=== PATIENT | female | born 1985 | race Hispanic/Latino ===

== ENCOUNTER 2018-11-23 20:08 | Observation (INO) | payer OTHER ==
[2018-11-23 21:36] LABS: #Basophils 0.1 thou/uL (0.0-0.2); #Eosinphils 0.1 thou/uL (0.0-0.7); #Monocytes 0.4 thou/uL (0.11-0.59); #Neutrophils 7.6 thou/uL (1.40-6.50); %Basophils 0.5 % (0.0-1.0); %Eosinophils 0.7 % (0.0-10.0); %Lymphocytes 27.3 % (21.0-51.0); %Monocytes 3.4 % (0.0-10.0); %Neutrophils 68.1 % (42.0-75.0); Hemoglobin 14.2 g/dL (12.0-16.0); Mean Corpuscular Hemoglobin 28.5 pg (27.0-31.0); Mean Corpuscular Volume 86.4 fL (78.0-98.0); Mean Platelet Volume 7.6 fL (7.4-10.4); Platelet Count 322 thou/uL (130-400); RBC Distribution Width 11.8 % (11.5-14.5); Red Blood Cell (RBC) Count 4.99 mill/uL (4.20-5.40); White Blood Cell (WBC) Count 11.1 thou/uL (4.8-10.8)
--- NOTE | 2018-11-23 21:58 | RAD ---
FRONTAL VIEW CHEST: 11/23/18 INDICATION: Left arm pain. FINDINGS: There is no evidence of consolidation, effusion, or pneumothorax. No free air. The cardiac silhouette is normal sized. IMPRESSION: No focal consolidation. POS: [facility]
[2018-11-23 22:11] LABS: ALT (SGPT) 30 U/L (8-55); AST (SGOT) 19 U/L (5-34); Albumin 4.4 g/dL (3.5-5.0); Alkaline Phosphatase 110 U/L (40-150); Anion Gap 12 mmol/L (10-20); BUN (Urea Nitrogen) 13 mg/dL (7.0-18.7); Bilirubin, Total 0.4 mg/dL (0.2-1.2); CK (CPK) 77 U/L (29-168); Calc. Creatinine Clearance 0 mL/min (70-130); Calcium 9.8 mg/dL (7.8-10.44); Carbon Dioxide 28 mmol/L (22-29); Chloride 103 mmol/L (98-107); Estimated GFR-MDRD 84; Globulin 4.2 g/dL (2.4-3.5); Glucose 88 mg/dL (70-105); Lipase 12 U/L (8-78); Potassium 3.9 mmol/L (3.5-5.1); Protein, Total 8.6 g/dL (6.0-8.3); Sodium 139 mmol/L (136-145)
--- NOTE | 2018-11-23 23:44 | CT ---
CT OF HEAD NONCONTRAST: 11/23/18 INDICATION: Headache with left upper extremity numbness. FINDINGS: Ventricular system is normal in size. There is no midline shift. There is hypoattenuation at the expe cted region of the pineal gland, incompletely assessed on the basis of this exam. No intracranial he morrhage, mass effect or midline shift. IMPRESSION: 1. No acute intracranial abnormalities are identified. 2. 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 Recommend followup with dedicated pre and postcontrast brain MRI for further evaluation. Code T POS: [facility]
[2018-11-23] MEDS ORDERED: diphenhydrAMINE 50 MG/ML VIAL ONE (23:46)
[2018-11-23] MEDS ORDERED: Acetaminophen 500 MG TAB ONE (23:46)
[2018-11-23] MEDS ORDERED: Metoclopramide HCl 10 MG/2 ML VIAL ONE (23:46)
[2018-11-24] MEDS ORDERED: diphenhydrAMINE 50 MG/ML VIAL ONE (00:08)
[2018-11-24] MEDS ORDERED: Acetaminophen 325 MG TAB PO PRN (02:25)
[2018-11-24] MEDS ORDERED: Ondansetron PF 4 MG/2 ML Vial IVP PRN (02:25)
[2018-11-24] MEDS ORDERED: hydrALAZINE 20 MG/ML VIAL SLOW IVP PRN (02:42)
[2018-11-24 04:40] LABS: #Eosinphils 0.1 thou/uL (0.0-0.7); #Lymphocytes 2.5 thou/uL (1.20-3.40); #Monocytes 0.4 thou/uL (0.11-0.59); #Neutrophils 5.3 thou/uL (1.40-6.50); %Basophils 0.1 % (0.0-1.0); %Eosinophils 1.4 % (0.0-10.0); %Lymphocytes 29.9 % (21.0-51.0); %Monocytes 4.2 % (0.0-10.0); %Neutrophils 64.3 % (42.0-75.0); Hemoglobin 13.1 g/dL (12.0-16.0); Mean Corpuscular HGB CONC 33.2 g/dL (32.0-36.0); Mean Corpuscular Hemoglobin 28.9 pg (27.0-31.0); Mean Corpuscular Volume 87.1 fL (78.0-98.0); Mean Platelet Volume 7.6 fL (7.4-10.4); Platelet Count 285 thou/uL (130-400); RBC Distribution Width 11.8 % (11.5-14.5); Red Blood Cell (RBC) Count 4.53 mill/uL (4.20-5.40); White Blood Cell (WBC) Count 8.2 thou/uL (4.8-10.8)
--- NOTE | 2018-11-24 04:40 | HP ---
PRIMARY CARE DOCTOR: No PCP. CODE STATUS: Full code. TIME OF EVALUATION: 2 a.m. CHIEF COMPLAINT: Left 2 to 4 fingers numbness and inability to move them. HISTORY OF PRESENT ILLNESS: This is a 33-year-old female patient with past medical history of morbidly obese, hypertension, who came to the hospital after having a new episode that was started around 4 p.m., where the patient had sudden onset of left 2 to 4 fingers numbness, symptoms were moderate, the patient still have the symptoms. No clear triggers. No alleviating factors. Associated with paresthesia in the area. The symptoms are relatively getting worse. REVIEW OF SYSTEMS: CONSTITUTIONAL: No fever, chills, or generalized weakness. RESPIRATORY: No cough, sputum production, or shortness of breath. CARDIOVASCULAR: No chest pain or palpitations. GASTROINTESTINAL: No nausea. No vomiting, diarrhea, or abdominal pain. [employer]ATE COMMUNICATIONS: No dizziness, headache, or feeling lightheaded. The patient does have left 2 to 4 fingers numbness and palsy. GENITOURINARY: No burning on urination. EXTREMITIES: No leg swelling. All other systems were reviewed and negative except for the findings mentioned above. PAST MEDICAL HISTORY: As mentioned in the HPI. PAST SURGICAL HISTORY: Cholecystectomy. PSYCH HISTORY: No previous psych history. SOCIAL HISTORY: The patient is a former marijuana user. No smoking history. The patient drinks rarely. She lives with mother and boyfriend in [place]. FAMILY HISTORY: Reviewed and noncontributory for current presentation. ALLERGIES: TO ADRYAN. NO KNOWN DRUG ALLERGIES. REPORTED MEDICATIONS: None. PHYSICAL EXAMINATION: VITAL SIGNS: The patient had blood pressure 170/133 with heart rate 91, respiratory rate was 20, temperature 98.4, oxygen saturation 97% on room air. GENERAL APPEARANCE: The patient is alert and oriented, not in acute distress. HEENT: Eyes; normal conjunctivae. Moist oral mucosa. Anicteric. No JVD. RESPIRATORY: Bilateral air entry. No rales. No wheezing. Symmetric expansion. CARDIOVASCULAR: Normal rate, regular rhythm. No murmurs, no gallops. Bilateral leg edema. ABDOMEN: Soft. Normal bowel sounds. MUSCULOSKELETAL: Baseline range of motion and strength. No tenderness. SKIN: Warm, intact. No pallor. No rash. No redness. VASCULAR: Peripheral pulses are present. Capillary refill seems to be intact. NEURO: The patient has left-sided fingers paresis and paresthesias from #2 to 4. The rest of the physical exam is negative. From the neuro standpoint, cranial nerves seems to be intact. PSYCH: The patient has good mood. No anxiety. Optimal judgment. DIAGNOSTIC STUDIES: EKG was reviewed. The patient has normal sinus rhythm with a rate of 88, with AR 136, duration 74, QT corrected 438. Chest x-ray results, there is no focal consolidation. Brain CT showed no acute cranial abnormalities are identified. 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 Also, this is incompletely evaluated. We recommended for all they can do pre and post contrast brain MRI for further evaluation. LABORATORY DATA: Labs were reviewed. The patient has white count of 11.1, hemoglobin 14.2, MCV 86.4, platelet count 322. D-dimer is negative. Sodium 139, potassium 3.9, chloride 103, carbon dioxide 20, anion gap 12, BUN 13, creatinine 0.8, GFR 84, glucose 88, calcium 9.8, total bilirubin 0.4, AST 19, ALT 30, alkaline phosphatase 110. Serum total protein 9.6, albumin 4.4, globulin 4.2, albumin to globulin ratio is 1.0, lipase 12. ASSESSMENT AND PLAN: The patient will be placed in the hospital with following medical problems: 1. 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 2. Morbid obesity. The patient has been advised to lose weight. 3. Hypertensive urgency. The patient has some high blood pressure. She has a history of chronic hypertension with noncompliance with medical treatment. The patient is being started on p.r.n. medications due to new onset of neurological findings may allow some permissive hypertension. 4. Deep venous thrombosis prophylaxis. 5. Risk: High risk due to new onset of neurological deficit. Job ID: [id number]
[2018-11-24 05:05] LABS: Anion Gap 12 mmol/L (10-20); BUN (Urea Nitrogen) 13 mg/dL (7.0-18.7); Calc. Creatinine Clearance 0 mL/min (70-130); Calcium 8.8 mg/dL (7.8-10.44); Carbon Dioxide 26 mmol/L (22-29); Cardiac Risk 5.1 (Less than 4.5); Chloride 105 mmol/L (98-107); Cholesterol 139 mg/dl (< 200 Desired); Estimated GFR-MDRD 85; Glucose 151 mg/dL (70-105); HDL Cholesterol 27 mg/dL (>60 Neg Risk); LDL Cholesterol, Calculated 66 mg/dL; Potassium 3.2 mmol/L (3.5-5.1); Sodium 140 mmol/L (136-145); Triglycerides 228 mg/dL (Less than 150)
[2018-11-24] MEDS: Sodium Chloride 0.9% 1,000 ML IV SCH ×2 (05:09→15:55)
[2018-11-24 05:44] VITALS: BMI 69.4
[2018-11-24] MEDS ORDERED: Enoxaparin Sodium 40 MG/0.4 ML SYRINGE SC SCH (09:00)
[2018-11-24] MEDS ORDERED: Aspirin 325 mg Enteric Coated Tablet PO SCH (09:00)
[2018-11-24] MEDS ORDERED: Ketorolac Tromethamine 30 MG/ML VIAL IVP PRN (11:30)
[2018-11-24] MEDS ORDERED: Ketorolac Tromethamine 30 MG/ML VIAL IVP SCH (12:00)
[2018-11-24] MEDS ORDERED: Dihydroergotamine Mesylate 1 MG/ML AMP SLOW IVP SCH (14:00)
[2018-11-24] MEDS ORDERED: Metoclopramide HCl 10 MG/2 ML VIAL IVP SCH (14:00)
[2018-11-24 16:11] VITALS: TEMP 97.5
[2018-11-24 16:20] VITALS: BP 139/86
[2018-11-24] MEDS ORDERED: Atorvastatin Calcium 40 MG TAB PO SCH (21:00)
== END 2018-11-24 18:40 | disposition home or self-care (01) ==
LOC: ERS 20:08 → 2SW 11-24 02:22 → ERHOLD 11-24 02:58 → 2SE 11-24 04:44
PROVIDERS: ADMIT Hospitalist; ATTEND Hospitalist
DX: R29.818 Other symptoms and signs involving the nervous system (principal); I16.0 Hypertensive urgency; E66.01 Morbid (severe) obesity due to excess calories; Z68.44 Body mass index [BMI] 60.0-69.9, adult; Z90.49 Acquired absence of other specified parts of digestive tract; Z91.018 Allergy to other foods; Z79.899 Other long term (current) drug therapy
CPT/HCPCS: 36415; 70450; 71045; 80048; 80053; 80061; 82550; 83690; 84484; 85025; 85379; 90471; 90686; 93005; 96361; 96365; 96366; 96372; 96375; 96376; G0008; G0378; J1110; J1200; J1650; J1885; J2765

== ENCOUNTER 2018-11-27 16:29 | Emergency (ER) | payer OTHER ==
[2018-11-27] MEDS ORDERED: ISOVUE-370 76%-LOCM 1 ML ONE (16:36)
[2018-11-27 17:23] LABS: #Eosinphils 0.1 thou/uL (0.0-0.7); #Lymphocytes 1.9 thou/uL (1.20-3.40); #Monocytes 0.4 thou/uL (0.11-0.59); #Neutrophils 7.1 thou/uL (1.40-6.50); %Basophils 0.1 % (0.0-1.0); %Eosinophils 1.2 % (0.0-10.0); %Lymphocytes 19.6 % (21.0-51.0); %Neutrophils 75.1 % (42.0-75.0); Hemoglobin 13.6 g/dL (12.0-16.0); Mean Corpuscular HGB CONC 32.8 g/dL (32.0-36.0); Mean Corpuscular Hemoglobin 28.4 pg (27.0-31.0); Mean Corpuscular Volume 86.5 fL (78.0-98.0); Mean Platelet Volume 7.6 fL (7.4-10.4); Platelet Count 311 thou/uL (130-400); RBC Distribution Width 11.7 % (11.5-14.5); White Blood Cell (WBC) Count 9.5 thou/uL (4.8-10.8)
[2018-11-27 17:44] LABS: BHCG - Serum Negative (NEGATIVE); Pregs Control Background? CLEAR/WHITE (CLR/WHITE); Pregs Control Bar Appear? YES (CONTROL BAR)
[2018-11-27 17:46] LABS: ALT (SGPT) 30 U/L (8-55); AST (SGOT) 19 U/L (5-34); Albumin 4.2 g/dL (3.5-5.0); Alkaline Phosphatase 109 U/L (40-150); Anion Gap 10 mmol/L (10-20); BUN (Urea Nitrogen) 8 mg/dL (7.0-18.7); Bilirubin, Total 0.4 mg/dL (0.2-1.2); Calc. Creatinine Clearance 0 mL/min (70-130); Calcium 9.4 mg/dL (7.8-10.44); Carbon Dioxide 25 mmol/L (22-29); Chloride 105 mmol/L (98-107); Estimated GFR-MDRD 89; Globulin 3.9 g/dL (2.4-3.5); Glucose 88 mg/dL (70-105); Potassium 3.9 mmol/L (3.5-5.1); Protein, Total 8.1 g/dL (6.0-8.3); Sodium 136 mmol/L (136-145)
[2018-11-27] MEDS ORDERED: Acetaminophen 500 MG TAB ONE (17:47)
[2018-11-27] MEDS ORDERED: Metoclopramide HCl 10 MG/2 ML VIAL ONE (17:47)
[2018-11-27] MEDS ORDERED: diphenhydrAMINE 50 MG/ML VIAL ONE (17:47)
--- NOTE | 2018-11-27 17:56 | RAD ---
CHEST ONE VIEW: 11/27/18 HISTORY: Chest pain, syncopal episode. Migraine headaches. Neck pain. COMPARISON: 11/23/18. FINDINGS: Large body habitus lowers the sensitivity of the study. Minimal motion artifact. Heart size is within normal limits. The lungs are clear. No pneumonia, edema, pleural effusion or other acute process. IMPRESSION: No acute intrathoracic disease. POS: [facility]
--- NOTE | 2018-11-27 18:36 | CT ---
CT ANGIOGRAM HEAD WITH 3D RENDERIN11/27/18 With and without contrast CT angiogram head is performed. COMPARISON: 11/23/[address] without IV contrast. There is no focal mass or midline shift. No intra or extra-axial hemorrhage. Both right and left vert ebral arteries are at the lower range of normal in caliber with an unremarkable appearing basilar art jason which is also at the lower range of normal size. The right and left intracranial internal caroti d arteries, visualized middle cerebral arteries and anterior cerebral arteries and posterior cerebral arteries appear unremarkable. No evidence for major branch occlusion. No evidence for aneurysm demon strated. IMPRESSION: Unremarkable head CTA. No evidence for major branch occlusion or evidence for aneurysm. Somewhat lowe r range of normal size vertebrobasilar arteries without focal abnormality. POS: [facility]
[2018-11-27] MEDS ORDERED: Magnesium 2 GM/50 ML BAG (IN WATER) ONE (19:39)
[2018-11-27] MEDS ORDERED: Ketorolac Tromethamine 30 MG/ML VIAL ONE (19:39)
== END 2018-11-27 21:20 | disposition short-term general hospital (02) ==
LOC: ERS 16:29
DX: R51 Headache (principal); E34.8 Other specified endocrine disorders; I10 Essential (primary) hypertension; E66.9 Obesity, unspecified
CPT/HCPCS: 36415; 70496; 71045; 80053; 84484; 84703; 85025; 93005; 96365; 96367; 96375; J1200; J1885; J2765; J3475; Q9966

== ENCOUNTER 2019-03-26 20:33 | Emergency (ER) | payer OTHER, SELFPAY ==
[2019-03-26 21:21] LABS: #Eosinphils 0.1 thou/uL (0.0-0.7); #Lymphocytes 2.1 thou/uL (1.20-3.40); #Monocytes 0.4 thou/uL (0.11-0.59); #Neutrophils 8.5 thou/uL (1.40-6.50); %Basophils 0.2 % (0.0-1.0); %Eosinophils 0.6 % (0.0-10.0); %Lymphocytes 19.3 % (21.0-51.0); %Monocytes 3.7 % (0.0-10.0); %Neutrophils 76.2 % (42.0-75.0); Mean Corpuscular HGB CONC 32.8 g/dL (32.0-36.0); Mean Corpuscular Hemoglobin 28.9 pg (27.0-31.0); Mean Corpuscular Volume 88.2 fL (78.0-98.0); Mean Platelet Volume 7.3 fL (7.4-10.4); Platelet Count 331 thou/uL (130-400); RBC Distribution Width 11.8 % (11.5-14.5); Red Blood Cell (RBC) Count 4.49 mill/uL (4.20-5.40); White Blood Cell (WBC) Count 11.1 thou/uL (4.8-10.8)
[2019-03-26 21:31] LABS: BHCG - Serum Negative (NEGATIVE); Pregs Control Background? CLEAR/WHITE (CLR/WHITE); Pregs Control Bar Appear? YES (CONTROL BAR)
[2019-03-26 21:42] LABS: ALT (SGPT) 42 U/L (8-55); AST (SGOT) 23 U/L (5-34); Albumin 4.2 g/dL (3.5-5.0); Alkaline Phosphatase 112 U/L (40-150); Anion Gap 11 mmol/L (10-20); BUN (Urea Nitrogen) 13 mg/dL (7.0-18.7); Bilirubin, Total 0.3 mg/dL (0.2-1.2); Calc. Creatinine Clearance 0 mL/min (70-130); Calcium 9.5 mg/dL (7.8-10.44); Carbon Dioxide 29 mmol/L (22-29); Chloride 104 mmol/L (98-107); Estimated GFR-MDRD 81; Globulin 3.6 g/dL (2.4-3.5); Glucose 93 mg/dL (70-105); Potassium 4.4 mmol/L (3.5-5.1); Protein, Total 7.8 g/dL (6.0-8.3); Sodium 140 mmol/L (136-145)
[2019-03-26] MEDS ORDERED: Ondansetron ODT 8 MG TAB ONE (22:17)
[2019-03-26] MEDS ORDERED: Ketorolac Tromethamine 60 MG/2 ML VIAL ONE (22:17)
== END 2019-03-26 22:10 | disposition home or self-care (01) ==
LOC: ERS 20:33
DX: R10.9 Unspecified abdominal pain (principal); F32.9 Major depressive disorder, single episode, unspecified
CPT/HCPCS: 36415; 80053; 84703; 85025; 96372; J1885

== ENCOUNTER 2019-05-08 18:36 | Emergency (ER) | payer SELFPAY ==
[2019-05-08 19:51] LABS: #Eosinphils 0.2 thou/uL (0.0-0.7); #Lymphocytes 2.5 thou/uL (1.20-3.40); #Monocytes 0.4 thou/uL (0.11-0.59); #Neutrophils 7.6 thou/uL (1.40-6.50); %Basophils 0.3 % (0.0-1.0); %Eosinophils 1.4 % (0.0-10.0); %Lymphocytes 23.5 % (21.0-51.0); %Neutrophils 70.7 % (42.0-75.0); Hemoglobin 13.8 g/dL (12.0-16.0); Mean Corpuscular HGB CONC 33.1 g/dL (32.0-36.0); Mean Corpuscular Hemoglobin 28.6 pg (27.0-31.0); Mean Corpuscular Volume 86.5 fL (78.0-98.0); Mean Platelet Volume 7.8 fL (7.4-10.4); Platelet Count 287 thou/uL (130-400); RBC Distribution Width 11.7 % (11.5-14.5); Red Blood Cell (RBC) Count 4.83 mill/uL (4.20-5.40); White Blood Cell (WBC) Count 10.7 thou/uL (4.8-10.8)
[2019-05-08 20:12] LABS: ALT (SGPT) 32 U/L (8-55); AST (SGOT) 17 U/L (5-34); Alkaline Phosphatase 100 U/L (40-150); Anion Gap 11 mmol/L (10-20); BUN (Urea Nitrogen) 10 mg/dL (7.0-18.7); Bilirubin, Total 0.2 mg/dL (0.2-1.2); Calc. Creatinine Clearance 0 mL/min (70-130); Calcium 9.6 mg/dL (7.8-10.44); Carbon Dioxide 29 mmol/L (22-29); Chloride 101 mmol/L (98-107); Estimated GFR-MDRD Greater than 90; Globulin 3.7 g/dL (2.4-3.5); Glucose 88 mg/dL (70-105); Protein, Total 7.7 g/dL (6.0-8.3); Sodium 137 mmol/L (136-145)
== END 2019-05-08 21:12 | disposition home or self-care (01) ==
LOC: ERS 18:36
DX: M79.89 Other specified soft tissue disorders (principal); I10 Essential (primary) hypertension; G43.909 Migraine, unspecified, not intractable, without status migrainosus; E66.9 Obesity, unspecified; F32.9 Major depressive disorder, single episode, unspecified
CPT/HCPCS: 36415; 80053; 83880; 85025; 99283

== ENCOUNTER 2020-11-29 07:37 | Emergency (ER) | payer BC, SELFPAY ==
[2020-11-29 08:53] LABS: #Eosinphils 0.1 thou/uL (0.0-0.7); #Lymphocytes 1.5 thou/uL (1.20-3.40); #Monocytes 0.2 thou/uL (0.11-0.59); #Neutrophils 5.2 thou/uL (1.40-6.50); %Basophils 0.2 % (0.0-1.0); %Eosinophils 1.3 % (0.0-10.0); %Lymphocytes 21.8 % (21.0-51.0); %Monocytes 2.9 % (0.0-10.0); %Neutrophils 73.8 % (42.0-75.0); Hemoglobin 13.2 g/dL (12.0-16.0); Mean Corpuscular HGB CONC 33.9 g/dL (32.0-36.0); Mean Corpuscular Hemoglobin 29.6 pg (27.0-31.0); Mean Corpuscular Volume 87.3 fL (78.0-98.0); Mean Platelet Volume 8.5 fL (7.4-10.4); Platelet Count 253 thou/uL (130-400); RBC Distribution Width 11.4 % (11.5-14.5); Red Blood Cell (RBC) Count 4.46 mill/uL (4.20-5.40); White Blood Cell (WBC) Count 7.1 thou/uL (4.8-10.8)
--- NOTE | 2020-11-29 09:03 | ULT ---
Pelvic ultrasound: 11/29/2020 COMPARISON: None HISTORY: Heavy vaginal bleeding TECHNIQUE: Multiplanar grayscale sonographic imaging of the pelvis is obtained with transabdominal an d endovaginal imaging. The ovaries are evaluated with Doppler interrogation including color flow and spectral analysis. FINDINGS: The uterus measures approximately 11.2 x 4.6 x 5.1 cm. The ovaries are difficult to evaluat e as they can only be seen on the transabdominal imaging. The right ovary is very difficult to visualize. What may represent the right ovary measures approximately 2.4 x 3.4 x 2.9 cm and demonstra rodney blood flow. Blood flow is seen in the region of the left ovary. Left ovary measures approximately 5.8 x 4.4 x 6.3 cm and contains a cyst measuring in the 5.0 x 4.9 x 4.1 cm range. No uterine mass is identified. Endometrial stripe is approximately 1 cm, within normal limits for a premenopausal female. No discret e uterine mass identified. No free fluid is seen within the pelvis. IMPRESSION: 5 cm left ovarian cyst. No discrete uterine abnormality.
[2020-11-29 09:21] LABS: ALT (SGPT) 33 U/L (8-55); AST (SGOT) 28 U/L (5-34); Albumin 4.1 g/dL (3.5-5.0); Alkaline Phosphatase 120 U/L (40-110); Anion Gap 16 mmol/L (10-20); BUN (Urea Nitrogen) 9 mg/dL (7.0-18.7); Bilirubin, Total 0.3 mg/dL (0.2-1.2); Calc. Creatinine Clearance 0 mL/min (70-130); Calcium 8.6 mg/dL (7.8-10.44); Carbon Dioxide 24 mmol/L (22-29); Chloride 99 mmol/L (98-107); Globulin 3.7 g/dL (2.4-3.5); Glucose 363 mg/dL (70-105); Potassium 3.6 mmol/L (3.5-5.1); Protein, Total 7.8 g/dL (6.0-8.3); Sodium 135 mmol/L (136-145)
[2020-11-29] MEDS ORDERED: Ketorolac Tromethamine 30 MG/ML VIAL ONE (09:42)
[2020-11-29 10:01] LABS: Bacteria/HPF None Seen HPF (None Seen); Bilirubin Negative (Negative); Blood, Urine 3+ (Negative); Clarity Turbid (Clear); Glucose, Urine (Dipstick) Greater than 1000 mg/dL (Negative); Ketone, Urine 150 mg/dL (Negative); Leukocyte 25 Leu/uL (Negative); Nitrite Negative (Negative); Protein, Urine (Dipstick) 30 mg/dL (Neg-Trace); RBC/HPF Greater than 50 HPF (0-3); Specific Gravity, Urine 1.042 (1.002-1.036); Squamous Epithelial 0-3 HPF (0-3); Urobilinogen Normal mg/dL (Less than 2); WBC/HPF 0-3 HPF (0-3); pH, Urine 5.5 (5.0-9.0)
[2020-11-29 10:03] LABS: Pregnancy Test - Urine (BHCG) Negative (Negative); Specific Gravity 1.042 (1.002-1.036)
[2020-11-29 10:04] LABS: Pregu Control Background? CLEAR/WHITE (CLR/WHITE); Pregu Control Bar Appear? YES (CONTROL BAR)
== END 2020-11-29 10:31 | disposition home or self-care (01) ==
LOC: ERS 07:37
DX: N94.6 Dysmenorrhea, unspecified (principal); I10 Essential (primary) hypertension; E66.9 Obesity, unspecified
CPT/HCPCS: 36415; 76856; 80053; 81003; 81015; 81025; 85025; 86850; 86900; 86901; 96374; J1885

== ENCOUNTER 2021-01-11 09:54 | Outpatient (CLI) | payer BC | END 2021-01-11 09:55 | disposition home or self-care (01) | LOC: BICULT 09:54 | PROVIDERS: ATTEND Nurse Practitioner Family | DX: E11.51 Type 2 diabetes mellitus with diabetic peripheral angiopathy without gangrene (principal); E78.5 Hyperlipidemia, unspecified; R94.5 Abnormal results of liver function studies; E66.01 Morbid (severe) obesity due to excess calories; K76.0 Fatty (change of) liver, not elsewhere classified; Z90.49 Acquired absence of other specified parts of digestive tract | CPT/HCPCS: 93975 ==